=== PATIENT | female | born 1975 | race African-American/Black ===

== ENCOUNTER → 2019-02-28 | Outpatient (CLI) | payer BC ==
--- NOTE | 2019-03-03 10:47 | MAM ---
EXAM DESCRIPTION: 3D Screening BILATERAL : Digital Mammography. CLINICAL HISTORY: 44 years Female ANNUAL SCREENING . No complaints. No personal history of breast cancer. Female sibling with ovarian cancer. Remote family history of breast cancer. Menarche age 14. Childbirth. Premenopausal. No HRT. Lifetime risk of developing breast cancer (Tyrer-Cuzick model)(%): 9.5. COMPARISON: Baseline study at this facility. No prior reports available. TECHNIQUE: Bilateral CC and MLO projection full-field images, digital tomosynthesis mammographic technique. Bilateral digital 2-D full-field MLO images. CAD not available for tomosynthesis or 2-D images. Technically difficult study with lack of pectoral muscle imaging on left MLO projection. FINDINGS: The breast parenchymal density pattern is: Scattered areas of fibroglandular density. No skin thickening or nipple retraction. Bilateral solitary microcalcifications. Left axillary lymph nodes. Skin calcifications near the left nipple. Focal asymmetry at the 7:00 position 7-8 cm from the nipple. Not associated with mass or microcalcifications. No new focal, stellate mass or density, focal asymmetry , and no suspicious microcalcifications left breast. IMPRESSION: BI-RADS CATEGORY: 0 - INCOMPLETE- Need additional imaging evaluation. FOLLOW-UP: Recall for additional imaging: Full-field LM 2-D and tomosynthesis images. Directed right breast ultrasound following the diagnostic images.. Written communication concerning the IMPRESSION and Follow-up, will be mailed to the patient and referring health care provider. Electronically signed by: Anuj Quinones MD 03/03/2019 10:45 AM NURSES' REGISTRY DIRECTOR
== END ==
LOC: MAMMO 08:51
PROVIDERS: ATTEND General Practice
DX: Z12.31 Encounter for screening mammogram for malignant neoplasm of breast (principal)

== ENCOUNTER → 2019-04-02 | Outpatient (CLI) | payer BC ==
--- NOTE | 2019-04-02 17:27 | US ---
EXAM DESCRIPTION: 3D Diagnostic, Bilateral (accession [id number]), Breast,Right (accession [id number]): Ultrasound CLINICAL HISTORY: 44 yearsFemaleABNORMAL SCREENING focal asymmetry in the mid right breast. No personal history of breast cancer. Female sibling with ovarian cancer. Remote family history of breast cancer. Menarche age 14. Childbirth. Premenopausal. No HRT. Lifetime risk of developing breast cancer (Tyrer-Cuzick model)(%): 9.5. COMPARISON: Bilateral screening digital breast tomosynthesis 02/28/2019. TECHNIQUE: Bilateral LM projection full-field images, digital tomosynthesis technique. Bilateral 2-D digital full-field images. LM and CC projections. CAD not available. . Transcutaneous scanning of the right breast utilizing burton-scale and Doppler modes. Scanning performed by the director market intelligence and observation by Dr. Quinones. FINDINGS: The breast parenchymal density pattern is: Scattered areas of fibroglandular density. No skin thickening or nipple retraction solitary microcalcifications. Mammographic abnormality from the previous screening examination not well seen. No new focal, stellate mass or density, focal asymmetry , and no suspicious microcalcifications bilateral breasts. Ultrasound: Scanning of the right breast 7.5 cm from the nipple at 8:00 position. Mixture of fibroglandular and fatty echotexture. No dominant solid mass, no distinct cyst, no parenchymal edema and no large calcifications. No overlying skin changes. IMPRESSION: Benign exam. BIRAD CATEGORY: 2 BENIGN FINDINGS. RECOMMENDATIONS: FOLLOW UP: Return to routine digital bilateral mammographic screening, one year interval from February 2019. Written communication explaining the IMPRESSION and follow-up, will be mailed to the patient and referring health care provider. The FINDINGS and the FOLLOW-UP plan were reviewed in person with the patient after the examination. According to the [employer], yearly mammograms are recommended starting at age 40 and continuing as long as a woman is in good health. Any breast change noted on a breast self-exam should be reported promptly to the patient's healthcare provider. Breast MRI is recommended for women with an approximately 20-25% or greater lifetime risk of breast cancer, including women with a strong family history of breast or ovarian cancer and women who have been treated for Hodgkin's disease. A negative mammographic report should not delay tissue diagnosis in patients with significant clinical history or physical findings. Extremely dense breast tissue limits the sensitivity of digital mammography. Electronically signed by: Anuj Quinones MD 04/02/2019 5:25 PM QUALITATIVE FIELD COORDINATOR
== END ==
LOC: MAMMO 08:42
PROVIDERS: ATTEND General Practice
DX: R92.8 Other abnormal and inconclusive findings on diagnostic imaging of breast (principal)
CPT/HCPCS: 76641; 77066; G0279